=== PATIENT | male | born 1950 | race Caucasian/White ===

== ENCOUNTER → 2023-05-04 | Outpatient (CLI) | payer MEDICARE, OTHER, SELFPAY ==
[2023-05-05 13:08] LABS: PSA, Free 0.72 ng/mL; PSA, Free % 16.6 % (.)
== END | disposition home or self-care (01) ==
PROVIDERS: PCP Orthopaedic Surgery; Referring Provider Urology; Visit Provider Urology
DX: R97.20 Elevated prostate specific antigen [PSA] (principal)
CPT/HCPCS: 36415; 84153; 84154

== ENCOUNTER → 2023-10-25 | Outpatient (CLI) | payer MEDICARE, OTHER, SELFPAY ==
[2023-10-25 11:47] LABS: PSA,Total- Diagnostic 5.88 ng/mL (0.0-4.0)
== END | disposition home or self-care (01) ==
PROVIDERS: PCP Family Medicine; Referring Provider Urology; Visit Provider Urology
DX: R97.20 Elevated prostate specific antigen [PSA] (principal)
CPT/HCPCS: 36415; 84153

== ENCOUNTER → 2023-11-15 | Outpatient (CLI) | payer MEDICARE, OTHER, SELFPAY ==
--- NOTE | 2023-11-15 11:11 | MRI_ITS ---
STUDY: MR PELVIS WITH AND WITHOUT CONTRAST (PROSTATE) REASON FOR EXAM: Male, 73 years old. Elevated PSA TECHNIQUE: Standardized multiparametric prostate MRI with T1, T2, DWI/ADC sequences were obtained in 3 orthogonal planes, and dynamic contrast enhancement sequences. 18ml clariscan contrast material was administered intravenously for the contrast portion of the examination. COMPARISON: None. FINDINGS: The prostate volume measures 34 mm3. The contours of the prostate gland are smooth. There is not mass effect on the bladder base. The transition zone is heterogenous. PI-RADS DWI score 3 - Focal mildly hypointense on ADC and isointense/mildly hyperintense on high b-value DWI. PI-RADS T2W score 2 - A mostly encapsulated nodule OR a homogeneous circumscribed nodule without encapsulation (atypical nodule) or a homogeneous mildly hypointense area between nodules.. 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 The peripheral zone is homogenous. PI-RADS DWI score 2 - Linear/wedge shaped hypointense on ADC and/or linear/wedge shaped hyperintense on high b-value DWI. PI-RADS T2W score 2 - Linear, wedge-shaped, or diffuse mild hypointensity, usually with indistinct margin. Contrast enhancement no early or contemporaneous enhancement; or diffuse multifocal enhancement NOT corresponding to a focal finding on T2W and/or DWI or focal enhancement responding to a lesion demonstrating features of BPH onT2WI (including features of extruded BPH in the PZ). The seminal vesicles demonstrate normal margins and T2 signal pattern. No mass lesion or invasion depicted. The rectoprostatic angles are normal. Urinary bladder is normal without wall thickening. The vascular structures of the are normal. The visualized hollow viscus structures are normal. Fat-containing right inguinal hernia. Right hip replacement noted. No bone marrow edema or mass lesion depicted. MRI/Pelvis W/WO Contrast IMPRESSION: 1. PIRADS v2.1 2019 -- 2 - Low (clinically significant cancer is unlikely). Electronically Signed: Landon Soriano MD ([place]) at 15:47 EDT Reading Location ID and State: [facility] / [place] , Service support ,
[2023-11-15 11:48] LABS: CREATININE FINGERSTICK 1.1 mg/dL (0.70-1.30); EGFR FINGERSTICK > 60.0000 mL/min (>60)
== END | disposition home or self-care (01) ==
LOC: MRI 10:59
PROVIDERS: PCP Family Medicine; Referring Provider Urology; Visit Provider Urology
DX: R97.20 Elevated prostate specific antigen [PSA] (principal)
CPT/HCPCS: 72197; A9575

== ENCOUNTER → 2024-05-22 | Outpatient (CLI) | payer MEDICARE, OTHER, SELFPAY ==
[2024-05-22 12:13] LABS: PSA,Total- Diagnostic 6.62 ng/mL (0.0-4.0)
== END | disposition home or self-care (01) ==
LOC: LAB 11:16
PROVIDERS: PCP Family Medicine; Referring Provider Urology; Visit Provider Urology
DX: R97.20 Elevated prostate specific antigen [PSA] (principal)
CPT/HCPCS: 36415; 84153

== ENCOUNTER → 2024-11-25 | Outpatient (CLI) | payer MEDICARE, OTHER, SELFPAY ==
[2024-11-25 17:11] LABS: PSA,Total- Diagnostic 4.92 ng/mL (0.00-4.00)
== END | disposition home or self-care (01) ==
LOC: LAB 11:40
PROVIDERS: PCP Family Medicine; Referring Provider Urology; Visit Provider Urology
DX: N40.1 Benign prostatic hyperplasia with lower urinary tract symptoms (principal)
CPT/HCPCS: 36415; 84153